=== PATIENT | male | born 1970 | race African-American/Black ===

== ENCOUNTER 2019-05-12 11:58 | Emergency (ER) | payer MEDICAID ==
[~2019-05-12] VITALS: Ht 195.6 cm; Wt 74.0 kg
[2019-05-12 12:59] VITALS: BP 136/77
[2019-05-12] MEDS ORDERED: KETOROLAC 60MG/2ML VIAL IM ONE (13:45)
== END 2019-05-12 15:22 | disposition home or self-care (01) ==
LOC: ER 11:58
DX: S53.402A Unspecified sprain of left elbow, initial encounter (principal); F17.200 Nicotine dependence, unspecified, uncomplicated; X58.XXXA Exposure to other specified factors, initial encounter; Y93.9 Activity, unspecified; Y92.9 Unspecified place or not applicable
CPT/HCPCS: 73070; 96372; 99283; J1885